=== PATIENT | female | born 1945 | race Caucasian/White ===

== ENCOUNTER 2016-07-31 05:48 | Emergency (ER) | payer MEDICARE ==
--- NOTE | 2016-07-31 06:17 | Emergency Department Record ---
History of Present Illness - General Chief complaint: ENT Stated complaint: SORE THROAT Time Seen by Provider: 07/31/16 06:11 Source: Patient Mode of Arrival: Ambulatory Limitations: No limitations - History of Present Illness Initial comments: 71 yo female presents to ED with a 3-day history of bilateral ear pain and sore throat symptoms. Patient denies fevers, chills, or recent illness, denies health problems at her baseline. MD complaint: Sore throat Onset/Timin -: Days(s) Location: R ear, L ear Severity: Severe Severity scale (1-10): 8 Consistency: Constant Improves with: Cold therapy Worsens with: Eating, Swallowing Associated Symptoms: Sore throat - Related Data Home Medications Medication Instructions Recorded Confirmed Last Taken Alprazolam [Alprazolam] 1 mg PO DAILY 03/01/14 07/31/16 07/30/16 Citalopram Hydrobromide 40 mg PO DAILY 03/01/14 07/31/16 07/30/16 [Citalopram HBr] Pravastatin Sodium [Pravachol] 80 mg PO DAILY 07/17/14 07/31/16 07/30/16 Cholecalciferol (Vitamin D3) 50,000 unit PO DAILY 04/09/15 07/31/16 07/30/16 [Vitamin D3] Meclizine HCl 25 mg PO Q8H tab.chew 03/30/16 07/31/16 07/30/16 Previous Rx's Medication Instructions Recorded Azithromycin [Zithromax] 250 mg PO DAILY #6 tab 07/31/16 Allergies Allergy/AdvReac Type Severity Reaction Status Date / Time cefuroxime axetil Allergy HIVES Unverified 04/03/16 08:47 [From Ceftin] clindamycin Allergy PT UNSURE Unverified 04/03/16 08:47 OF REACTION clindamycin HCl Allergy PT UNSURE Unverified 04/03/16 08:47 [From Cleocin] OF REACTION clindamycin palmitate HCl Allergy PT UNSURE Unverified 04/03/16 08:47 [From Cleocin] OF REACTION clindamycin phosphate Allergy PT UNSURE Unverified 04/03/16 08:47 [From Cleocin] OF REACTION ferrous sulfate Allergy HIVES Unverified 04/03/16 08:47 omeprazole [From Prilosec] Allergy HIVES Unverified 04/03/16 08:47 omeprazole magnesium Allergy HIVES Unverified 04/03/16 08:47 [From Prilosec] Penicillins Allergy HIVES Unverified 04/03/16 08:47 shellfish derived Allergy HIVES Unverified 04/03/16 08:47 Sulfa (Sulfonamide Allergy PT UNSURE Unverified 04/03/16 08:47 Antibiotics) OF REACTION acetaminophen [From [facility]] AdvReac CONSTIPATIO Unverified 04/03/16 08:47 N hydrocodone bitartrate AdvReac CONSTIPATIO Unverified 04/03/16 08:47 [From [facility]] N Travel Screening - Travel/Exposure Within Last 30 Days Have you traveled within the last 30 days?: No Review of Systems Constitutional: Denies: Chills, Fever, Malaise, Night sweats Eyes: Denies: Eye discharge, Eye pain ENT: Reports: Ear pain, Throat pain. Denies: Congestion, Epistaxis Respiratory: Denies: Cough, Dyspnea Cardiovascular: Denies: Chest pain, Dyspnea on exertion Endocrine: Denies: Fatigue, Heat or cold intolerance Gastrointestinal: Denies: Abdominal pain, Nausea, Vomiting Genitourinary: Denies: Incontinence, Retention Musculoskeletal: Denies: Arthralgia, Back pain, Gout, Joint swelling Skin: Denies: Bruising, Change in color Neurological: Denies: Abnormal gait, Confusion, Headache, Seizure Psychiatric: Denies: Anxiety Hematological/Lymphatic: Denies: Anemia, Blood Clots Past Medical History - SOCIAL HISTORY Smoking Status: Never smoker Alcohol Use: None Drug Use: None - RESPIRATORY Hx Respiratory Disorders: Yes Hx Sleep Apnea: Yes Hx of CPAP: Yes - CARDIOVASCULAR Hx Cardio Disorders: No - NEURO Hx Neuro Disorders: Yes Hx Dizziness: Yes (vertigo) - GI Hx GI Disorders: Yes Hx Reflux: Yes (relief with omeprazole) Hx Irritable Bowel: Yes (hx diverticulosis) Hx Ulcer: Yes (several times) Hx of Polyps: Yes (colon) - Hx Genitourinary Disorders: No Comment:: left kidney smaller than right kidney - ENDOCRINE Hx Endocrine Disorders: No - MUSCULOSKELETAL Hx Musculoskeletal Disorders: Yes Hx Arthritis: Yes (OSTEOARTHRITIS LEFT KNEE AND TORN MEDIAL MENISCUS) Comment:: HX ARTHROPLASTY LF THUMB DOING GOOD - PSYCH Hx Psych Problems: Yes Hx Anxiety: Yes (controlled with meds) - HEMATOLOGY/ONCOLOGY Hx Hematology/Oncology Disorders: No Family Medical History Any Significant Family History?: No Family Hx Comment (NOT TO BE USED IN PLACE OF ITEMS BELOW): Patient is adopted Physical Exam - General General Appearance: Alert, Oriented x3, Cooperative, Moderate distress Limitations: No limitations - Head Head exam: Atraumatic, Normocephalic, Normal inspection Head exam detail: negative: Abrasion, Contusion, Blandon's sign, General tenderness, Hematoma, Laceration - Eye Eye exam: Normal appearance. negative: Conjunctival injection, Periorbital swelling, Periorbital tenderness, Scleral icterus - ENT Ear exam: negative: Auricular hematoma, Auricular trauma Nasal Exam: negative: Active bleeding, Discharge, Dried blood, Foreign body Mouth exam: negative: Drooling, Laceration, Muffled voice, Tongue elevation - Neck Neck exam: Normal inspection. negative: Meningismus, Tenderness - Respiratory Respiratory exam: Normal lung sounds bilaterally. negative: Rales, Respiratory distress, Rhonchi, Stridor - Cardiovascular Cardiovascular Exam: Regular rate, Normal rhythm, Normal heart sounds - GI/Abdominal GI/Abdominal exam: Soft. negative: Rebound, Rigid, Tenderness - Rectal Rectal exam: Deferred - exam: Deferred - Extremities Extremities exam: Normal inspection. negative: Calf tenderness, Pedal edema, Tenderness - Back Back exam: Denies: CVA tenderness (R), CVA tenderness (L) - Neurological Neurological exam: Alert, Normal gait, Oriented X3 - Psychiatric Psychiatric exam: Normal affect, Normal mood - Skin Skin exam: Normal color. negative: Abrasion Type of lesion: negative: abrasion Course Vital Signs 07/31/16 06:04 Temperature 99.1 F Pulse Rate [ 103 H Pulse Ox Probe] Respiratory 18 Rate Blood Pressure 168/111 [Left Arm] Pulse Ox 98 - Reevaluation(s) Reevaluation #1: 07/31/16 06:27 Strep negative, will initiate Zithromax for the patient's URI symptoms with instructions for follow-up in 3-5 days. Patient appears stable for discharge at this time. Disposition Disposition: Discharge Clinical Impression: Pharyngitis Qualifiers: Pharyngitis/tonsillitis etiology: unspecified etiology Qualified Code(s): J02.9 - Acute pharyngitis, unspecified Disposition: Home, Self-Care Condition: (2) Stable Instructions: Pharyngitis (ED) Additional Instructions: Return to ED if your symptoms worsen or if you have any concerns. Zithromax as directed. Follow-up with your family doctor in 3-5 days as directed. Prescriptions: Azithromycin [Zithromax] 250 mg PO DAILY #6 tab Forms: Patient Portal Access Time of Disposition: 06:21
== END 2016-07-31 06:32 | disposition home or self-care (01) ==
LOC: ER 05:48
DX: J02.9 Acute pharyngitis, unspecified (principal); J06.9 Acute upper respiratory infection, unspecified; H92.03 Otalgia, bilateral
CPT/HCPCS: 87880; 99282

== ENCOUNTER 2017-05-09 07:00 | Day surgery (SDC) | payer MEDICARE ==
[2017-05-09] MEDS ORDERED: ACETAMINOPHEN 1,000 MG/100 ML BTL IV ONE (07:01)
[2017-05-09] MEDS ORDERED: PROPOFOL 10 MG/ML VIAL IV ONE (07:01)
[2017-05-09] MEDS ORDERED: ONDANSETRON HCL IV 4 MG/2 ML VIAL IVP ONE (07:01)
[2017-05-09] MEDS ORDERED: KETOROLAC 30 MG/ML VIAL IVP ONE (07:01)
[2017-05-09] MEDS ORDERED: *PACU ONLY* KETAMINE HCL 10 MG/ML (20ML) VIAL IV ONE (07:01)
--- NOTE | 2017-05-09 12:40 | Operative Note ---
DATE OF SURGERY: 05/09/2017 Surgeon: Jarad Dietz DO Referring physician: Maykel Hadley MD PREOPERATIVE DIAGNOSIS: Carpal tunnel of the left wrist. POSTOPERATIVE DIAGNOSIS: Carpal tunnel of the left wrist. OPERATION: Decompression of left median nerve of the wrist using 3.5 loupe magnification. Anesthesia: General. PROCEDURE: This 71-year-old female was taken to the operating room and placed in the supine position on the operating room table, general anesthesia was induced, and the left upper extremity was elevated. It was prepped with Hibiclens and draped in the usual sterile fashion, was exsanguinated, and the tourniquet inflated to 250 mmHg. A palmar incision was utilized following the hypothenar crease from the level of the base of the web space of the thumb to the flexor crease of the wrist. Dissection was carried down through the skin and subcutaneous tissue. The palmar fascia was identified and split in line with the skin incision to expose the flexor retinaculum, which was punctured and then split to its proximal margin, then with the contents of the carpal tunnel under direct vision, the transverse carpal ligament was transected along its ulnar border. The radial flap was raised to expose the entire median nerve under the transverse carpal ligament. The recurrent motor branch of the median nerve was identified and found to be normal. The wound was irrigated with lactated Ringer's solution and the tourniquet released. Hemostasis obtained with the electrocautery. The wound closed with interrupted 6-0 nylon suture. Sterile dressings were applied with a plaster splint immobilization, with the wrist in slight dorsiflexion. GROSS PATHOLOGY: The patient's median nerve and recurrent motor branch appeared to be grossly normal. [facility]
== END 2017-05-09 09:21 | disposition home or self-care (01) ==
LOC: SUR 07:00
PROVIDERS: ATTEND Orthopaedic Surgery
DX: G56.02 Carpal tunnel syndrome, left upper limb (principal); E78.00 Pure hypercholesterolemia, unspecified
CPT/HCPCS: 64721; 01810; J1885; J2405

== ENCOUNTER 2017-11-10 00:16 | Emergency (ER) | payer MEDICARE ==
[2017-11-10] MEDS ORDERED: ASPIRIN 81 MG CHEWABLE TABLET PO ONE (00:22)
[2017-11-10] MEDS ORDERED: LORAZEPAM 2 MG/ML VIAL IV ONE (00:29)
--- NOTE | 2017-11-10 00:33 | Emergency Department Record ---
History of Present Illness - General Chief Complaint: Chest Pain Stated Complaint: CHEST TIGHTNESS Time Seen by Provider: 11/10/17 00:22 Source: Patient Mode of Arrival: Ambulatory Limitations: No limitations - History of Present Illness Initial Comments: 72 yo female presents to ED for evaluation of chest discomfort radiating through to her chest that began approximately 90 minutes ago. Patient reports that she has been under a lot of stress with the near of her son-in-law, reports a history of panic attacks previously but has not experienced one in some tome. Patient reports recent diagnosis of HTN, denies previous heart problems, DM, or smoking history. MD Complaint: Chest pain Onset/Timin -: Minutes(s) Onset: During rest Pain Location: Substernal Pain Radiation: Back, Other Severity: Mild Severity scale (1-10): 3 Quality: Aching Consistency: Constant Improves With: Nothing Worsens With: Nothing Context: New medications Anginal Symptoms: Other Other Symptoms: Other Treatments Prior to Arrival: None - Related Data Allergies Allergy/AdvReac Type Severity Reaction Status Date / Time cefuroxime axetil Allergy HIVES Unverified 11/07/17 16:44 [From Ceftin] clindamycin Allergy PT UNSURE Unverified 11/07/17 16:44 OF REACTION clindamycin HCl Allergy PT UNSURE Unverified 11/07/17 16:44 [From Cleocin] OF REACTION clindamycin palmitate HCl Allergy PT UNSURE Unverified 11/07/17 16:44 [From Cleocin] OF REACTION clindamycin phosphate Allergy PT UNSURE Unverified 11/07/17 16:44 [From Cleocin] OF REACTION ferrous sulfate Allergy HIVES Unverified 11/07/17 16:44 omeprazole [From Prilosec] Allergy HIVES Unverified 11/07/17 16:44 omeprazole magnesium Allergy HIVES Unverified 11/07/17 16:44 [From Prilosec] Penicillins Allergy HIVES Unverified 11/07/17 16:44 shellfish derived Allergy HIVES Unverified 11/07/17 16:44 Sulfa (Sulfonamide Allergy PT UNSURE Unverified 11/07/17 16:44 Antibiotics) OF REACTION acetaminophen [From [place]] AdvReac CONSTIPATIO Unverified 11/07/17 16:44 N hydrocodone bitartrate AdvReac CONSTIPATIO Unverified 11/07/17 16:44 [From [place]] N paper tape Allergy Mild Uncoded 06/04/17 14:03 Travel Screening - Travel/Exposure Within Last 30 Days Have you traveled within the last 30 days?: No - Travel Symptoms Symptom Screening: Headache Review of Systems Constitutional: Denies: Chills, Fever, Malaise, Night sweats Eyes: Denies: Eye discharge, Eye pain ENT: Denies: Congestion, Ear pain, Epistaxis Respiratory: Denies: Cough, Dyspnea Cardiovascular: Reports: Chest pain. Denies: Dyspnea on exertion, Edema Endocrine: Denies: Fatigue, Heat or cold intolerance Gastrointestinal: Denies: Abdominal pain, Nausea, Vomiting Genitourinary: Denies: Incontinence, Retention Musculoskeletal: Denies: Arthralgia, Back pain Skin: Denies: Bruising, Change in color Neurological: Denies: Abnormal gait, Confusion, Headache, Seizure Psychiatric: Reports: Anxiety Hematological/Lymphatic: Denies: Anemia, Blood Clots Past Medical History - SOCIAL HISTORY Smoking Status: Never smoker Alcohol Use: None Drug Use: None - RESPIRATORY Hx Respiratory Disorders: Yes Hx Sleep Apnea: Yes Hx of CPAP: Yes (doesnt use every night) - CARDIOVASCULAR Hx Cardio Disorders: No - NEURO Hx Neuro Disorders: Yes Hx Dizziness: Yes (vertigo controlled with meds) - GI Hx GI Disorders: Yes Hx Reflux: Yes (relief with omeprazole) Hx Irritable Bowel: Yes (hx diverticulosis) Hx Ulcer: Yes (several times) Hx of Polyps: Yes (colon) - Hx Genitourinary Disorders: No Comment:: left kidney smaller than right kidney according to MRI - ENDOCRINE Hx Endocrine Disorders: No - MUSCULOSKELETAL Hx Musculoskeletal Disorders: Yes Hx Arthritis: Yes (generalized) Comment:: HX ARTHROPLASTY LF THUMB DOING GOOD - PSYCH Hx Psych Problems: Yes Hx Anxiety: Yes (controlled with meds) Hx Depression: Yes - HEMATOLOGY/ONCOLOGY Hx Hematology/Oncology Disorders: No Family Medical History Any Significant Family History?: No Family Hx Comment (NOT TO BE USED IN PLACE OF ITEMS BELOW): Patient is adopted Physical Exam - General General Appearance: Alert, Oriented x3, Cooperative, Anxious Limitations: No limitations - Head Head exam: Atraumatic, Normocephalic, Normal inspection Head exam detail: negative: Abrasion, Contusion, Blandon's sign, General tenderness, Hematoma, Laceration - Eye Eye exam: Normal appearance. negative: Conjunctival injection, Periorbital swelling, Periorbital tenderness, Scleral icterus - ENT Ear exam: negative: Auricular hematoma, Auricular trauma Nasal Exam: negative: Active bleeding, Discharge, Dried blood, Foreign body Mouth exam: negative: Drooling, Laceration, Muffled voice, Tongue elevation - Neck Neck exam: Normal inspection. negative: Meningismus, Tenderness - Respiratory Respiratory exam: Normal lung sounds bilaterally. negative: Rales, Respiratory distress, Rhonchi, Stridor - Cardiovascular Cardiovascular Exam: Regular rate, Normal rhythm, Normal heart sounds - GI/Abdominal GI/Abdominal exam: Soft. negative: Rebound, Rigid, Tenderness - Rectal Rectal exam: Deferred - exam: Deferred - Extremities Extremities exam: Normal inspection. negative: Calf tenderness, Pedal edema, Tenderness - Back Back exam: Denies: CVA tenderness (R), CVA tenderness (L) - Neurological Neurological exam: Alert, Normal gait, Oriented X3 - Psychiatric Psychiatric exam: Anxious - Skin Skin exam: Normal color. negative: Abrasion Type of lesion: negative: abrasion Course Vital Signs 11/10/17 00:19 Temperature 98.2 F Pulse Rate 107 H Respiratory 22 Rate Blood Pressure 192/88 Pulse Ox 98 - Reevaluation(s) Reevaluation #1: 11/10/17 00:32 EKG: SInus tachycardia 106 Normal axis, normal intervals Q waves III, No acute ST-T wave changes are present. Reevaluation #2: 11/10/17 01:03 Labs reviewed and grossly unremarkable for an acute process. HEART Protocol applied, rates 3. Will discuss transfer for further cardiac evaluation vs. repeat Troponin. Reevaluation #3: 11/10/17 01:24 All results were discussed with the patient, reports that she is feeling better at this time. Discussed transfer for cardiology evaluation and stress testing, patient declined stating that her symptoms are related to stress and anxiety. Patient is willing to stay for 2nd Troponin at 3-hours, will arrange for outpatient stress testing in 2-3 days as well in the [facility] specialty clinic. Reevaluation #4: 11/10/17 04:18 Repeat Troponin appears negative for myocardial injury. Patient and her SO were updated on all results, appears stable for discharge at this time. Medical Decision Making - Lab Data Result diagrams: 11/10/17 00:35 09/23/18 00:35 Disposition Disposition: Discharge Clinical Impression: Chest pain, atypical Disposition: Home, Self-Care Condition: (2) Stable Instructions: Chest Pain (ED) Additional Instructions: Return to ED if your symptoms worsen or if you have any concerns. Follow-up with the [facility] for outpatient cardiac stress testing in 1-3 days as directed. Referrals: RAMONA HUFF M.D. [MEDICAL DOCTOR] - [facility] [Provider Group] Forms: Patient Portal Access Time of Disposition: 04:19 Quality - Quality Measures Quality Measures: N/A - Blood Pressure Screening Does Patient Have Any of the Following: No Blood Pressure Classification: Pre-Hypertensive BP Reading Systolic Measurement: 192 Diastolic Measurement: 88 Screening for High Blood Pressure: < Pre-Hypertensive BP, F/U Documented > [ [id number]] Pre-Hypertensive Follow-up Interventions: Referral to alternative/primary care provider.
[2017-11-10 00:43] LABS: BASO % 0.6 % (0-6); EOS % 1.7 % (0-6); GRAN % 60.5 % (47-80); HEMATOCRIT 39.7 % (35.0-47.0); LYMPH % 25.1 % (16-45); MEAN CELL VOLUME 96.1 fl (81-97); MEAN CORPUSCULAR HEMOGLOBIN 31.5 pg (27-33); MEAN CORPUSCULAR HGB CONC 32.7 g/dl (32-36); MEAN PLATELET VOLUME 9.7 fl (7.4-10.4); MONO % 12.1 % (0-9); PLATELET COUNT 284 K/uL (130-400); RED BLOOD COUNT 4.13 M/uL (3.80-5.40); RED CELL DISTRIBUTION WIDTH 12.1 % (11.5-14.5); WHITE BLOOD COUNT W/O DIFF 5.2 K/uL (4.2-12.2)
[2017-11-10 00:53] LABS: BLOOD UREA NITROGEN 25 mg/dL (8-23); CREATININE 0.6 mg/dL (0.5-0.9); EST GLOMERULAR FILTRATION RATE > 60 mL/min
[2017-11-10 00:54] LABS: TOTAL PROTEIN 6.8 g/dL (6.6-8.7)
[2017-11-10 00:56] LABS: GLUCOSE,RANDOM 138 mg/dL (74-109)
[2017-11-10 00:58] LABS: ALT/SGPT 25 U/L (<33); AST/SGOT 32 U/L (10.0-35.0)
[2017-11-10 00:59] LABS: ALB/GLOB RATIO 1.8 (1.1-1.8); ALBUMIN 4.4 g/dL (4.0-5.0); ALKALINE PHOSPHATASE 80 U/L (35-104)
== END 2017-11-10 04:51 | disposition home or self-care (01) ==
LOC: ER 00:16
DX: R07.89 Other chest pain (principal); I10 Essential (primary) hypertension
CPT/HCPCS: 80053; 84484; 85025; 93005; 93010; 96374; 99284

== ENCOUNTER 2018-06-25 19:59 | Observation (INO) | payer MEDICARE ==
--- NOTE | 2018-06-25 20:31 | Emergency Department Record ---
History of Present Illness - General Chief Complaint: Abdominal Pain Stated Complaint: ABDOMINAL PAIN Time Seen by Provider: 06/25/18 20:18 Source: Patient Mode of Arrival: Ambulatory - History of Present Illness Initial Comments: The patient states that she has a 4/10 bilateral lower abdominal pain associated with nausea. About 2 hours earlier she had some severe pain 10/10 which made her scream while trying to have a BM. She has chronic constipation, sometimes not having a BM for 2 weeks. She states her GI doc says she has diverticulosis. She also has a history of adhesions due to multiple surgeries including 2 C sections, hysterectomy. She has had several spells of this incresed severe pain since arriving. She received a cardiac stent in January and is on plavix which is causing her bruising. 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 Tonight she noted a streak of blood while attempting her BM. She also did have a large BM yesterday. MD Complaint: Abdominal pain Onset/Timin -: Days(s) Location: LLQ, RLQ Radiation: Other Migration to: Other Severity: Moderate Severity scale (1-10): 4 Quality: Sharp, Stabbing Improves With: Nothing Worsens With: Bowel movement Associated Symptoms: Denies other symptoms - Related Data Home Medications Medication Instructions Recorded Confirmed Last Taken Cholecalciferol (Vitamin D3) 2,000 unit PO DAILY 06/25/18 06/25/18 06/25/18 [Vitamin D3] Cyclobenzaprine HCl 7.5 mg PO ASDIR PRN 06/25/18 06/25/18 Unknown Allergies Allergy/AdvReac Type Severity Reaction Status Date / Time ticagrelor [From Brilinta] Allergy Mild itching Verified 06/25/18 20:40 cefuroxime axetil Allergy HIVES Verified 06/25/18 20:40 [From Ceftin] clindamycin Allergy PT UNSURE Verified 06/25/18 20:40 OF REACTION clindamycin HCl Allergy PT UNSURE Verified 06/25/18 20:40 [From Cleocin] OF REACTION clindamycin palmitate HCl Allergy PT UNSURE Verified 06/25/18 20:38 [From Cleocin] OF REACTION clindamycin phosphate Allergy PT UNSURE Verified 06/25/18 20:16 [From Cleocin] OF REACTION ferrous sulfate Allergy HIVES Verified 06/25/18 20:16 omeprazole [From Prilosec] Allergy HIVES Verified 06/25/18 20:16 omeprazole magnesium Allergy HIVES Verified 06/25/18 20:16 [From Prilosec] Penicillins Allergy HIVES Verified 06/25/18 20:16 shellfish derived Allergy HIVES Verified 06/25/18 20:16 Sulfa (Sulfonamide Allergy PT UNSURE Verified 06/25/18 20:16 Antibiotics) OF REACTION acetaminophen [From [place]] AdvReac CONSTIPATIO Verified 06/25/18 20:16 N hydrocodone bitartrate AdvReac CONSTIPATIO Verified 06/25/18 20:16 [From [place]] N paper tape Allergy Mild RASH Uncoded 06/25/18 20:16 Travel Screening - Travel/Exposure Within Last 30 Days Have you traveled within the last 30 days?: No - Travel/Exposure Within Last Year Have you traveled outside the [place] in the last year?: No - Additonal Travel Details Have you been exposed to anyone with a communicable illness?: No - Travel Symptoms Symptom Screening: None Review of Systems Reviewed: No additional complaints except as noted below Constitutional: Reports: As per HPI. Denies: Chills, Fever, Malaise, Night sweats, Weakness, Weight change Eyes: Reports: As per HPI. Denies: Eye discharge, Eye pain, Photophobia, Vision change ENT: Reports: As per HPI. Denies: Congestion, Dental pain, Ear pain, Epistaxis, Hearing loss, Throat pain Respiratory: Reports: As per HPI. Denies: Cough, Dyspnea, Hemoptysis, Stridor, Wheezes Cardiovascular: Reports: As per HPI. Denies: Arrhythmia, Chest pain, Dyspnea on exertion, Edema, Murmurs, Orthopnea, Palpitations, Paroxysmal nocturnal dyspnea, Rheumatic Fever, Syncope Endocrine: Reports: As per HPI. Denies: Fatigue, Heat or cold intolerance, Polydipsia, Polyuria Gastrointestinal: Reports: As per HPI. Denies: Abdominal pain, Constipation, Diarrhea, Hematemesis, Hematochezia, Melena, Nausea, Vomiting Genitourinary: Reports: As per HPI. Denies: Abnormal menses, Discharge, Dyspareunia, Dysuria, Frequency, Hematuria, Incontinence, Retention, Urgency Musculoskeletal: Reports: As per HPI. Denies: Arthralgia, Back pain, Gout, Joint swelling, Myalgia, Neck pain Skin: Reports: As per HPI. Denies: Bruising, Change in color, Change in hair/nails, Lesions, Pruritus, Rash Neurological: Reports: As per HPI. Denies: Abnormal gait, Confusion, Headache, Numbness, Paresthesias, Seizure, Tingling, Tremors, Vertigo, Weakness Psychiatric: Reports: As per HPI. Denies: Anxiety, Auditory hallucinations, De pression, Homicidal thoughts, Suicidal thoughts, Visual hallucinations Hematological/Lymphatic: Reports: As per HPI. Denies: Anemia, Blood Clots, Easy bleeding, Easy bruising, Swollen glands Past Medical History - SOCIAL HISTORY Smoking Status: Never smoker Alcohol Use: None Drug Use: None - RESPIRATORY Hx Respiratory Disorders: No Hx Sleep Apnea: No Hx of CPAP: No - CARDIOVASCULAR Hx Cardio Disorders: No Hx Cardiac Cath: Yes (stent [id number]) - NEURO Hx Neuro Disorders: Yes Hx Dizziness: Yes (vertigo controlled with meds) - GI Hx GI Disorders: Yes Hx Reflux: Yes (relief with omeprazole) Hx Irritable Bowel: Yes (hx diverticulosis) Hx Ulcer: Yes (several times) Hx of Polyps: Yes (colon) - Hx Genitourinary Disorders: No Comment:: left kidney smaller than right kidney according to MRI - ENDOCRINE Hx Endocrine Disorders: No - MUSCULOSKELETAL Hx Musculoskeletal Disorders: Yes Hx Arthritis: Yes (generalized) Comment:: HX ARTHROPLASTY LF THUMB DOING GOOD - PSYCH Hx Psych Problems: Yes Hx Anxiety: Yes (controlled with meds) Hx Depression: Yes - HEMATOLOGY/ONCOLOGY Hx Hematology/Oncology Disorders: No Family Medical History Any Significant Family History?: No Family Hx Comment (NOT TO BE USED IN PLACE OF ITEMS BELOW): Patient is adopted Physical Exam - General General Appearance: Alert, Oriented x3, Cooperative, Mild distress (with interm ittent episodes of severe distress), Anxious - Head Head exam: Normal inspection - Eye Eye exam: Normal appearance, PERRL, EOMI. negative: Conjunctival injection, Nystagmus Pupils: Normal accommodation - ENT ENT exam: Normal exam, Mucous membranes moist, Normal external ear exam, Normal orophraynx, TM's normal bilaterally Ear exam: Normal external inspection. negative: External canal tenderness Nasal Exam: Normal inspection. negative: Discharge, Sinus tenderness Mouth exam: Normal external inspection, Tongue normal Teeth exam: Normal inspection. negative: Dental caries Throat exam: Normal inspection. negative: Tonsillar erythema, Tonsillar exudate - Neck Neck exam: Normal inspection, Full ROM. negative: Lymphadenopathy, Meningismus, Tenderness - Respiratory Respiratory exam: Normal lung sounds bilaterally. negative: Accessory muscle use, Chest wall tenderness, Decreased breath sounds, Prolonged expiratory, Respiratory distress - Cardiovascular Cardiovascular Exam: Normal rhythm, Normal heart sounds, Tachycardia - GI/Abdominal GI/Abdominal exam: Soft, Normal bowel sounds, Tenderness (bilateral lower abdominal tenderness on palpation). negative: Distended, Guarding, Hernia, Rebound, Rigid - Rectal Rectal exam: Other (tiny rectal tear posteriorly, no active bleeding; no stool on glove). negative: Decreased rectal tone, Fecal impaction, Hemorrhoids, Mass - exam: Deferred - Extremities Extremities exam: Normal inspection, Full ROM, Normal capillary refill. negative: Tenderness - Back Back exam: Reports: Normal inspection, Full ROM. Denies: Muscle spasm, Rash noted, Tenderness - Neurological Neurological exam: Alert, Normal gait, Oriented X3, Reflexes normal - Psychiatric Psychiatric exam: Normal affect, Normal mood - Skin Skin exam: Dry, Intact, Normal color, Warm Course Vital Signs 06/25/18 20:06 Temperature 99.7 F H Pulse Rate [ 103 H Left] Respiratory 16 Rate Blood Pressure 142/82 [Left Arm] Pulse Ox 97 - Reevaluation(s) Reevaluation #1: 06/25/18 21:10 Her nauisea has improved after zofran ODT. 06/25/18 23:50 Reevaluation #2: CT scan results reviewed with patient. She prefers admission overnight due to her episodes of severe pain on and off. 06/25/18 23:50 Medical Decision Making - Management Options MDM Management: Additional Work-up Planned (e.g. ADM/Transfer/OP Study) - Data Complexity MDM Data: Labs Ordered and/or Reviewed, X-Ray Ordered and/or Reviewed (Abd/Pelvis CT: sigmoid diverticulitis per radiologist.) - Lab Data Result diagrams: 06/25/18 20:56 06/25/18 20:56 Disposition Disposition: Admit Clinical Impression: Diverticulitis of sigmoid colon Disposition: Still a Patient at [facility] Decision to Admit: Admit from ER Decision to Admit Date: 06/25/18 Decision to Admit Time: 23:52 Accepting Physician: Dr. Fernander Time Discussed w/Accepting Physician: 06:45 (0645 the next morning) Condition: (2) Stable Quality - Quality Measures Quality Measures: N/A - Blood Pressure Screening Does Patient Have Any of the Following: Active Dx of HTN Blood Pressure Classification: Pre-Hypertensive BP Reading Systolic Measurement: 123 Diastolic Measurement: 69 Screening for High Blood Pressure: Patient Exclusion, Hx of HTN [[id number]]
[2018-06-25] MEDS ORDERED: ONDANSETRON HCL IV 4 MG/2 ML VIAL IVP ONE (20:32)
[2018-06-25] MEDS ORDERED: 0.9 % SODIUM CHLORIDE 1,000 ML BAG IV ONE (20:32)
[2018-06-25] MEDS ORDERED: ONDANSETRON 4 MG ODT TABLET SL ONE (20:37)
[2018-06-25 20:59] LABS: ABSOLUTE NEUTROPHIL COUNT 6.07; BASO % 0.2 % (0-6); EOS % 2.5 % (0-6); GRAN % 70.3 % (47-80); HEMOGLOBIN 12.6 gm/dl (11.6-16.0); LYMPH % 16.2 % (16-45); MEAN CELL VOLUME 98.5 fl (81-97); MEAN CORPUSCULAR HEMOGLOBIN 31.8 pg (27-33); MEAN CORPUSCULAR HGB CONC 32.3 g/dl (32-36); MEAN PLATELET VOLUME 9.3 fl (7.4-10.4); MONO % 10.8 % (0-9); PLATELET COUNT 325 K/uL (130-400); RED BLOOD COUNT 3.96 M/uL (3.80-5.40); RED CELL DISTRIBUTION WIDTH 12.1 % (11.5-14.5); WHITE BLOOD COUNT W/O DIFF 8.6 K/uL (4.2-12.2)
[2018-06-25 21:01] LABS: URINE APPEARANCE CLEAR; URINE BILIRUBIN NEGATIVE (NEGATIVE); URINE BLOOD NEGATIVE (NEGATIVE); URINE COLOR YELLOW; URINE GLUCOSE (UA) NEGATIVE (NEGATIVE); URINE KETONE NEGATIVE (NEGATIVE); URINE LEUKOCYTE ESTERASE NEGATIVE (NEGATIVE); URINE NITRITE NEGATIVE (NEGATIVE); URINE PROTEIN NEGATIVE (NEGATIVE); URINE UROBILINOGEN 0.2 E.U./dL (0.20 - 1.00)
[2018-06-25 21:12] LABS: BLOOD UREA NITROGEN 12 mg/dL (8-23); CREATININE 0.6 mg/dL (0.5-0.9); EST GLOMERULAR FILTRATION RATE > 60 mL/min
[2018-06-25 21:13] LABS: LIPASE 31 U/L (13-60); TOTAL PROTEIN 7.2 g/dL (6.6-8.7)
[2018-06-25 21:14] LABS: GLUCOSE,RANDOM 92 mg/dL (74-109)
[2018-06-25 21:17] LABS: ALB/GLOB RATIO 1.8 (1.1-1.8); ALBUMIN 4.6 g/dL (4.0-5.0); ALKALINE PHOSPHATASE 86 U/L (35-104); ALT/SGPT 18 U/L (<33); AST/SGOT 22 U/L (10.0-35.0)
[2018-06-25] MEDS ORDERED: PIPERACILLIN SODIUM/TAZOBACTAM 4.5 GM in 0.9 % SODIUM CHLORIDE 100ML 100 ML IVPB ONE (22:41)
[2018-06-25] MEDS ORDERED: HYDROMORPHONE HCL 2 MG/ML VIAL IVP ONE (22:41)
[2018-06-25] MEDS ORDERED: VANCOMYCIN HCL 1,000 MG in 0.9 % SODIUM CHLORIDE 250ML 250 ML IVPB ONE (22:44)
[2018-06-26] MEDS ORDERED: 0.9 % SODIUM CHLORIDE 1000ML 1,000 ML IV PRN (00:14)
[2018-06-26] MEDS ORDERED: HYDROMORPHONE HCL 2 MG/ML VIAL IV PRN (00:14)
[2018-06-26] MEDS ORDERED: ONDANSETRON HCL IV 4 MG/2 ML VIAL IVP PRN (00:14)
[2018-06-26] MEDS ORDERED: PIPERACILLIN SODIUM/TAZOBACTAM 4.5 GM in 0.9 % SODIUM CHLORIDE 100ML 100 ML IVPB SCH ×2 (00:15→06:30)
[2018-06-26] MEDS ORDERED: MECLIZINE HCL 25 MG PO SCH (00:15)
[2018-06-26] MEDS ORDERED: VANCOMYCIN HCL 1,000 MG in 0.9 % SODIUM CHLORIDE 250ML 250 ML IVPB SCH ×2 (00:15→05:00)
[2018-06-26] MEDS ORDERED: VENLAFAXINE HCL 150 MG PO SCH (00:15)
[2018-06-26] MEDS ORDERED: CLOPIDOGREL 75MG TABLET PO SCH (00:15)
[2018-06-26] MEDS ORDERED: ASPIRIN 81 MG TABEC PO SCH (00:15)
[2018-06-26] MEDS: ACETAMINOPHEN 500 MG TABLET PO PRN (04:03)
[2018-06-26] MEDS ORDERED: VANCOMYCIN HCL 1,000 MG in 0.9 % SODIUM CHLORIDE 250ML 250 ML IVPB ONE (05:00)
[2018-06-26 07:00] LABS: ABSOLUTE NEUTROPHIL COUNT 3.56; BASO % 0.4 % (0-6); EOS % 4.4 % (0-6); GRAN % 62.5 % (47-80); HEMATOCRIT 33.7 % (35.0-47.0); HEMOGLOBIN 10.7 gm/dl (11.6-16.0); LYMPH % 20.9 % (16-45); MEAN CELL VOLUME 99.4 fl (81-97); MEAN CORPUSCULAR HGB CONC 31.8 g/dl (32-36); MEAN PLATELET VOLUME 9.6 fl (7.4-10.4); MONO % 11.8 % (0-9); PLATELET COUNT 286 K/uL (130-400); RED BLOOD COUNT 3.39 M/uL (3.80-5.40); RED CELL DISTRIBUTION WIDTH 12.2 % (11.5-14.5); WHITE BLOOD COUNT W/O DIFF 5.7 K/uL (4.2-12.2)
[2018-06-26 07:07] LABS: MEAN CORPUSCULAR HEMOGLOBIN 31.5 pg (27-33)
[2018-06-26 07:11] LABS: BLOOD UREA NITROGEN 12 mg/dL (8-23); CREATININE 0.6 mg/dL (0.5-0.9); EST GLOMERULAR FILTRATION RATE > 60 mL/min; GLUCOSE,RANDOM 114 mg/dL (74-109)
--- NOTE | 2018-06-26 07:30 | CT SCAN REPORT ---
EXAM: CT OF THE ABDOMEN AND PELVIS WITHOUT IV CONTRAST HISTORY: LOWER ABDOMINAL PAIN. TECHNIQUE: Helical CT scan of the abdomen and pelvis was obtained without intravenous contrast. No oral contrast was administered. Comparison: CT of the abdomen and pelvis without contrast 07/17/14. FINDINGS: The lung bases are clear. Moderate aortic valvular calcification. No pericardial effusion. The liver again has geographic low density, consistent with fatty change. Normal size. Cholecystectomy clips are present. The spleen has normal size. No inflammatory change of the pancreas. No renal calculi or hydronephrosis. The bowel has normal caliber. Interval development of thickening and inflammatory change of the mid sigmoid colon for approximately a 7 cm segment. Several diverticula are present in this region and there is surrounding pericolonic fat stranding. Tiny amount of peritoneal fluid, no fluid collections. No extraluminal gas. The umbilical hernia again contains unobstructed transverse colon. The urinary bladder is unremarkable. The bony structures show moderate degenerative change at L4-L5. Suboptimal evaluation of the solid organs without intravenous contrast. IMPRESSION: 1. ACUTE MID SIGMOID DIVERTICULITIS. NO EVIDENCE OF PERFORATION OR ABSCESS. RECOMMEND FOLLOW-UP WITH COLONOSCOPY AT A LATER TIME TO BE SURE THERE IS NO UNDERLYING MASS IN THIS THICKENED SEGMENT OF COLON. 2. UMBILICAL HERNIA CONTAINING UNOBSTRUCTED COLON, SIMILAR TO PREVIOUS EXAM. JOB NUMBER: [id number] [facility]
[2018-06-26] MEDS ORDERED: CYCLOBENZAPRINE 7.5 MG PO PRN (09:00)
[2018-06-26] MEDS ORDERED: CORICIDIN HBP PO PRN (09:00)
[2018-06-26] MEDS: CLOPIDOGREL 75MG TABLET PO SCH (10:02)
[2018-06-26] MEDS: METOPROLOL TART 25 MG TABLET PO SCH ×2 (10:02→21:29)
[2018-06-26] MEDS: MECLIZINE 25 MG TABLET PO SCH ×2 (10:03→12:15)
[2018-06-26] MEDS: VENLAFAXINE ER 75 MG CAPSULE PO SCH (10:03)
[2018-06-26] MEDS: ASPIRIN 81 MG TABEC PO SCH (10:03)
[2018-06-26] MEDS: CHOLECALCIFEROL 1,000 UNIT TABLET PO SCH (10:04)
[2018-06-26] MEDS ORDERED: CIPROFLOXACIN LACTATE/D5W 400 MG/200 ML BAG IVPB SCH (10:15)
--- NOTE | 2018-06-26 11:25 | History & Physical ---
History of Present Illness - Date of Service Date of Service for History & Physical: 06/26/18 - History of Present Illness Admitting Diagnosis: Acute sigmoid diverticulitis; abdominal pain History of Present Illness: 73 year old female patient presented to ED for evaluation of abdominal pain. Patient reported generalized lower abdominal pain with intermittent nausea. States she has noted some intermittent pain for the past 2 weeks. Reports no diarrhea, but chronic constipation. States her last BM was 06/25/18. Patient reports a history of diverticulosis and abdominal adhesions due to multiple c- sections and a hysterectomy. Patient also reports a history of cardiac stenting last January, and was started on Plavix at that time. Reports additional history of HTN, anxiety, and depression. PCP: Magy Li NP ED Course: Temp 99.7F, HR 103, RR 16, BP 142/82, Pulse Ox 97% ABD/Pelvic CT: acute mid-sigmoid diverticulitis with no perforation or abscess, umbilical hernia containing unobstructed colon, similar to previous studies UA negative WBC 8.6 Started Zosyn and Vanco 06/26/18: Patient A&O x 4, resting comfortably in bed. Patient reports lower abdominal pain 2/10, improved from last night, with 1 dose of Dilaudid in ED. Has been tolerating PO fluids with no nausea or vomiting. Travel Screening - Travel/Exposure Within Last 30 Days Have you traveled within the last 30 days?: No - Travel/Exposure Within Last Year Have you traveled outside the [place] in the last year?: No - Additonal Travel Details Have you been exposed to anyone with a communicable illness?: No - Travel Symptoms Symptom Screening: None Review of Systems Reviewed: No additional complaints except as noted below Constitutional: Reports: As per HPI. Denies: Chills, Fever, Malaise, Night sweats, Weakness, Weight change Eyes: Reports: As per HPI. Denies: Eye discharge, Eye pain, Photophobia, Vision change ENT: Reports: As per HPI. Denies: Congestion, Dental pain, Ear pain, Epistaxis, Hearing loss, Throat pain Respiratory: Reports: As per HPI. Denies: Cough, Dyspnea, Hemoptysis, Stridor, Wheezes Cardiovascular: Reports: As per HPI. Denies: Arrhythmia, Chest pain, Dyspnea on exertion, Edema, Murmurs, Orthopnea, Palpitations, Paroxysmal nocturnal dyspnea, Rheumatic Fever, Syncope Endocrine: Reports: As per HPI. Denies: Fatigue, Heat or cold intolerance, Polydipsia, Polyuria Gastrointestinal: Reports: As per HPI, Abdominal pain, Nausea. Denies: Constipation, Diarrhea, Hematemesis, Hematochezia, Melena, Vomiting Genitourinary: Reports: As per HPI. Denies: Abnormal menses, Discharge, Dysp areunia, Dysuria, Frequency, Hematuria, Incontinence, Retention, Urgency Musculoskeletal: Reports: As per HPI. Denies: Arthralgia, Back pain, Gout, Joint swelling, Myalgia, Neck pain Skin: Reports: As per HPI. Denies: Bruising, Change in color, Change in hair/nails, Lesions, Pruritus, Rash Neurological: Reports: As per HPI. Denies: Abnormal gait, Confusion, Headache, Numbness, Paresthesias, Seizure, Tingling, Tremors, Vertigo, Weakness Psychiatric: Reports: As per HPI. Denies: Anxiety, Auditory hallucinations, Depression, Homicidal thoughts, Suicidal thoughts, Visual hallucinations Hematological/Lymphatic: Reports: As per HPI. Denies: Anemia, Blood Clots, Easy bleeding, Easy bruising, Swollen glands Past Medical History - SOCIAL HISTORY Smoking Status: Never smoker Alcohol Use: None Drug Use: None - RESPIRATORY Hx Respiratory Disorders: No Hx Sleep Apnea: No Hx of CPAP: No - CARDIOVASCULAR Hx Cardio Disorders: No Hx Cardiac Cath: Yes (stent [id number]) - NEURO Hx Neuro Disorders: Yes Hx Dizziness: Yes (vertigo controlled with meds) - GI Hx GI Disorders: Yes Hx Reflux: Yes (relief with omeprazole) Hx Irritable Bowel: Yes (hx diverticulosis) Hx Ulcer: Yes (several times) Hx of Polyps: Yes (colon) - Hx Genitourinary Disorders: No Comment:: left kidney smaller than right kidney according to MRI - ENDOCRINE Hx Endocrine Disorders: No - MUSCULOSKELETAL Hx Musculoskeletal Disorders: Yes Hx Arthritis: Yes (generalized) Comment:: HX ARTHROPLASTY LF THUMB DOING GOOD - PSYCH Hx Psych Problems: Yes Hx Anxiety: Yes (controlled with meds) Hx Depression: Yes - HEMATOLOGY/ONCOLOGY Hx Hematology/Oncology Disorders: No Family Medical History Any Significant Family History?: No Family Hx Comment (NOT TO BE USED IN PLACE OF ITEMS BELOW): Patient is adopted H&P Meds/Allergies - Allergies Allergies: Allergies Allergy/AdvReac Type Severity Reaction Status Date / Time ticagrelor [From Brilinta] Allergy Mild itching Verified 06/25/18 20:40 cefuroxime axetil Allergy HIVES Verified 06/25/18 20:40 [From Ceftin] clindamycin Allergy PT UNSURE Verified 06/25/18 20:40 OF REACTION clindamycin HCl Allergy PT UNSURE Verified 06/25/18 20:40 [From Cleocin] OF REACTION clindamycin palmitate HCl Allergy PT UNSURE Verified 06/25/18 20:38 [From [place]] OF REACTION clindamycin phosphate Allergy PT UNSURE Verified 06/25/18 20:16 [From [place]] OF REACTION ferrous sulfate Allergy HIVES Verified 06/25/18 20:16 omeprazole [From Prilosec] Allergy HIVES Verified 06/25/18 20:16 omeprazole magnesium Allergy HIVES Verified 06/25/18 20:16 [From Prilosec] Penicillins Allergy HIVES Verified 06/25/18 20:16 shellfish derived Allergy HIVES Verified 06/25/18 20:16 Sulfa (Sulfonamide Allergy PT UNSURE Verified 06/25/18 20:16 Antibiotics) OF REACTION acetaminophen [From [place]] AdvReac CONSTIPATIO Verified 06/25/18 20:16 N hydrocodone bitartrate AdvReac CONSTIPATIO Verified 06/25/18 20:16 [From [place]] N paper tape Allergy Mild RASH Uncoded 06/25/18 20:16 - Home Medications Home Medications Medication Instructions Recorded Confirmed Last Taken Cholecalciferol (Vitamin D3) 2,000 unit PO DAILY 06/25/18 06/25/18 06/25/18 [Vitamin D3] Cyclobenzaprine HCl 7.5 mg PO ASDIR PRN 06/25/18 06/25/18 Unknown - Active Medications Active Medications: Current Medications Acetaminophen (Tylenol 500mg Tab) 1,000 mg PO Q6H PRN PRN Reason: PAIN - MILD(1-4)/FEVER Last Admin: 06/26/18 04:03 Dose: 1,000 mg Documented by: Aspirin (Ecotrin (Ec)) 81 mg PO DAILY [facility] Last Admin: 06/26/18 10:03 Dose: 81 mg Documented by: Clopidogrel Bisulfate (Plavix) 75 mg PO DAILY [facility] Last Admin: 06/26/18 10:02 Dose: 75 mg Documented by: Hydromorphone HCl (Dilaudid) 1 mg IV Q4H PRN PRN Reason: ABDOMINAL PAIN Sodium Chloride () 1,000 mls @ 125 mls/hr IV .Q8H PRN PRN Reason: LARGE VOLUME IV Ciprofloxacin Lactate (Cipro) 400 mg in 200 mls @ 200 mls/hr IVPB Q12H [facility] Stop: 07/01/18 10:16 Metronidazole/Sodium Chloride (Flagyl) 500 mg in 100 mls @ 100 mls/hr IVPB Q8H [facility] Stop: 07/01/18 11:31 Magnesium Oxide (Mag Ox) 400 mg PO QHS [facility] Meclizine HCl (Antivert) 25 mg PO DAILY [facility] Last Admin: 06/26/18 10:03 Dose: 25 mg Documented by: Metoprolol Tartrate (Lopressor) 25 mg PO BID [facility] Last Admin: 06/26/18 10:02 Dose: 25 mg Documented by: Ondansetron HCl (Zofran) 4 mg IVP Q4H PRN PRN Reason: NAUSEA Patient Own Med: Cyclobenzaprine 7.5 Mg Tab 1 each PO DAILY PRN PRN Reason: MUSCLE SPASMS Patient Own Med: (Coricidin Hbp) 1 - 2 each PO DAILY PRN PRN Reason: COUGH Tramadol HCl (Ultram) 50 mg PO Q6H PRN PRN Reason: PAIN - MILD TO MODERATE (1-7) Trazodone HCl (Desyrel) 25 mg PO QHS [facility] Venlafaxine HCl (Effexor Xr) 150 mg PO DAILY [facility] Last Admin: 06/26/18 10:03 Dose: 150 mg Documented by: Vitamin D (Vitamin D3) 2,000 unit PO DAILY [facility] Last Admin: 06/26/18 10:04 Dose: 2,000 unit Documented by: Physical Exam - Vital Signs Vital Signs: Vital Signs - Last 24 Hrs Temp Pulse Pulse Resp BP BP Pulse Ox 06/26/18 08:00 98.0 F 80 16 135/70 94 L 06/26/18 04:09 86 20 131/62 96 06/26/18 00:58 16 06/25/18 23:55 97.4 F L 86 20 152/61 94 L 06/25/18 23:30 99.2 F 88 16 123/69 92 L 05/08/19 22:15 85 121/62 100 05/08/19 21:22 81 141/76 96 06/25/18 20:06 99.7 F H 103 H 16 142/82 97 - General General Appearance: Alert, Oriented x3, Cooperative, No acute distress, Anxious - Head Head exam: Normal inspection - Eye Eye exam: Normal appearance, PERRL, EOMI. negative: Conjunctival injection, Nystagmus Pupils: Normal accommodation - ENT ENT exam: Normal exam, Mucous membranes moist Ear exam: Normal external inspection. negative: External canal tenderness Nasal Exam: Normal inspection. negative: Discharge, Sinus tenderness Mouth exam: Normal external inspection, Tongue normal Teeth exam: Normal inspection. negative: Dental caries Throat exam: Normal inspection. negative: Tonsillar erythema, Tonsillar exudate - Neck Neck exam: Normal inspection, Full ROM. negative: Lymphadenopathy, Meningismus, Tenderness - Respiratory Respiratory exam: Normal lung sounds bilaterally. negative: Accessory muscle use, Chest wall tenderness, Decreased breath sounds, Prolonged expiratory, Respiratory distress - Cardiovascular Cardiovascular Exam: Normal rhythm, Normal heart sounds Peripheral Pulses: 2+: Radial (R), Radial (L) - GI/Abdominal GI/Abdominal exam: Soft, Normal bowel sounds, Tenderness (bilateral lower abdominal tenderness on palpation, L>R). negative: Distended, Guarding, Hernia, Rebound, Rigid - Rectal Rectal exam: Deferred. negative: Decreased rectal tone, Fecal impaction, Hemorrhoids, Mass - exam: Deferred - Extremities Extremities exam: Normal inspection, Full ROM, Normal capillary refill. negative: Tenderness - Back Back exam: Reports: Normal inspection, Full ROM. Denies: Muscle spasm, Rash noted, Tenderness - Neurological Neurological exam: Alert, Normal gait, Oriented X3, Reflexes normal - Psychiatric Psychiatric exam: Normal affect, Normal mood - Skin Skin exam: Dry, Intact, Normal color, Warm Results - Labs Result Diagrams: 06/26/18 06:11 06/26/18 06:00 Labs Last 24 Hours: Laboratory Results - last 24 hr 06/25/18 06/25/18 06/25/18 20:56 20:56 20:56 WBC 8.6 Corrected WBC RBC 3.96 Hgb 12.6 Hct 39.0 MCV 98.5 H MCH 31.8 MCHC 32.3 RDW 12.1 Plt Count 325 MPV 9.3 Gran % 70.3 Lymphocytes % 16.2 Monocytes % 10.8 H Eosinophils % 2.5 Basophils % 0.2 Absolute Neutrophils 6.07 Sodium 139 Potassium 3.7 Chloride 96 L Carbon Dioxide 31.0 H Anion Gap 12.0 BUN 12 Creatinine 0.6 Estimated GFR > 60 Random Glucose 92 Calcium 9.4 Total Bilirubin 0.30 AST 22 ALT 18 Alkaline Phosphatase 86 Total Protein 7.2 Albumin 4.6 Globulin 2.6 Albumin/Globulin Ratio 1.8 Lipase 31 Urine Color Yellow Urine Appearance Clear Urine pH 7.0 Ur Specific [place] 1.010 Urine Protein Negative Urine Glucose (UA) Negative Urine Ketones Negative Urine Blood Negative Urine Nitrite Negative Urine Bilirubin Negative Urine Urobilinogen 0.2 Ur Leukocyte Esterase Negative 06/25/18 06/26/18 06/26/18 21:12 06:00 06:11 WBC Cancelled 5.7 Corrected WBC Cancelled RBC Cancelled 3.39 L Hgb Cancelled 10.7 L Hct Cancelled 33.7 L MCV Cancelled 99.4 H MCH Cancelled 31.5 MCHC Cancelled 31.8 L RDW Cancelled 12.2 Plt Count Cancelled 286 MPV Cancelled 9.6 Gran % Cancelled 62.5 Lymphocytes % Cancelled 20.9 Monocytes % Cancelled 11.8 H Eosinophils % Cancelled 4.4 Basophils % Cancelled 0.4 Absolute Neutrophils Cancelled 3.56 Sodium 140 Potassium 4.1 Chloride 103 Carbon Dioxide 29.0 Anion Gap 8.0 BUN 12 Creatinine 0.6 Estimated GFR > 60 Random Glucose 114 H Calcium 8.7 L Total Bilirubin AST ALT Alkaline Phosphatase Total Protein Albumin Globulin Albumin/Globulin Ratio Lipase Urine Color Urine Appearance Urine pH Ur Specific [place] Urine Protein Urine Glucose (UA) Urine Ketones Urine Blood Urine Nitrite Urine Bilirubin Urine Urobilinogen Ur Leukocyte Esterase VTE H&P Assessment - Risk for VTE Risk for VTE: Yes Risk Level: Moderate Risk Assessment Date: 06/26/18 Risk Assessment Time: 11:26 VTE Orders Placed or Will Be Placed: No VTE Reason for No Prophylaxis: Contraindicated (not expected to stay >24 hours, currently on Plavix) Plan - Detailed Diagnosis and Plan (1) Diverticulitis of sigmoid colon Current Visit: Yes Status: Acute Base Code: K57.32 - DVTRCLI OF LG INT W/O PERFORATION OR ABSCESS W/O BLEEDING Comment: 06/26/18: -Abd/Pelvic CT: acute mid-sigmoid diverticulitis with no perforation or abscess; umbilical hernia containing unobstructed colon, similar to previous studies -DC Vanco and Zosyn started in ED -Begin Cipro 400mg IVPB q12h, Flagyl IVP 500mg q8h -Zofran 4mg prn nausea -Trial Ultram 50mg q6h prn abdominal pain -Encourage PO fluids (2) Abdominal pain Current Visit: Yes Status: Acute Base Code: R10.9 - UNSPECIFIED ABDOMINAL PAIN Comment: 06/26/18: -Intermittent lower abdominal pain/cramping -Dilaudid 1mg IVP prn pain -Trial Ultram 50mg q6h prn pain -Current pain 03/30 (3) DVT prophylaxis Current Visit: Yes Status: Acute Base Code: Z29.9 - ENCOUNTER FOR PROPHYLACTIC MEASURES, UNSPECIFIED Comment: 06/26/18: -Moderate risk due to age, hospitalization, and illness -No prophylaxis started at this time as pt expected to discharge in less than 24 hours -Encourage ambulation within the room -Continue home dose of Plavix (4) Full code status Current Visit: Yes Status: Acute Base Code: Z78.9 - OTHER SPECIFIED HEALTH STATUS Comment: 06/26/18: -Full code this admission
[2018-06-26] MEDS ORDERED: METRONIDAZOLE IVPB 500 MG/100 ML BAG IVPB SCH (11:30)
[2018-06-26] MEDS: CIPROFLOXACIN LACTATE/D5W 400 MG/200 ML BAG IVPB SCH ×2 (12:16→23:19)
[2018-06-26] MEDS: METRONIDAZOLE IVPB 500 MG/100 ML BAG IVPB SCH ×2 (13:10→20:38)
[2018-06-26] MEDS: TRAMADOL HCL 50 MG TABLET PO PRN ×2 (13:18→21:30)
[2018-06-26] MEDS: DOCUSATE SODIUM 100 MG CAPSULE PO SCH (21:30)
[2018-06-26] MEDS ORDERED: MAGNESIUM OXIDE 400 MG TABLET PO SCH (22:00)
[2018-06-26] MEDS ORDERED: TRAZODONE 50 MG TABLET PO SCH (22:00)
[2018-06-27] MEDS ORDERED: VANCOMYCIN HCL 2,000 MG in 0.9 % SODIUM CHLORIDE 500ML 500 ML IVPB SCH (03:00)
[2018-06-27] MEDS: METRONIDAZOLE IVPB 500 MG/100 ML BAG IVPB SCH (04:31)
[2018-06-27 06:51] LABS: ABSOLUTE NEUTROPHIL COUNT 3.27; BASO % 0.4 % (0-6); EOS % 5.9 % (0-6); GRAN % 57.8 % (47-80); HEMATOCRIT 36.1 % (35.0-47.0); HEMOGLOBIN 11.3 gm/dl (11.6-16.0); LYMPH % 25.4 % (16-45); MEAN CELL VOLUME 100.6 fl (81-97); MEAN CORPUSCULAR HGB CONC 31.3 g/dl (32-36); MEAN PLATELET VOLUME 10.2 fl (7.4-10.4); MONO % 10.5 % (0-9); PLATELET COUNT 208 K/uL (130-400); RED BLOOD COUNT 3.59 M/uL (3.80-5.40); RED CELL DISTRIBUTION WIDTH 12.2 % (11.5-14.5); WHITE BLOOD COUNT W/O DIFF 5.6 K/uL (4.2-12.2)
[2018-06-27 06:57] LABS: MEAN CORPUSCULAR HEMOGLOBIN 31.4 pg (27-33)
[2018-06-27 07:03] LABS: BLOOD UREA NITROGEN 8 mg/dL (8-23); CREATININE 0.5 mg/dL (0.5-0.9); EST GLOMERULAR FILTRATION RATE > 60 mL/min; GLUCOSE,RANDOM 90 mg/dL (74-109)
[2018-06-27] MEDS: ACETAMINOPHEN 500 MG TABLET PO PRN (08:17)
[2018-06-27] MEDS: CHOLECALCIFEROL 1,000 UNIT TABLET PO SCH (09:51)
[2018-06-27] MEDS: VENLAFAXINE ER 75 MG CAPSULE PO SCH (09:51)
[2018-06-27] MEDS: CLOPIDOGREL 75MG TABLET PO SCH (09:52)
[2018-06-27] MEDS: ASPIRIN 81 MG TABEC PO SCH (09:52)
[2018-06-27] MEDS: METOPROLOL TART 25 MG TABLET PO SCH (09:52)
[2018-06-27] MEDS: MECLIZINE 25 MG TABLET PO SCH (09:52)
[2018-06-27] MEDS: DOCUSATE SODIUM 100 MG CAPSULE PO SCH (09:52)
--- NOTE | 2018-06-27 10:42 | Discharge Summary ---
Providers Discharge Summary Date: 06/27/18 Date of admission: 06/25/18 23:37 Expected Date of Discharge: 06/27/18 Attending physician: HO BLAKE Primary care physician: Magy Li N.P. Physical Exam - Vital Signs Vital Signs: Vital Signs - Last 24 Hrs Temp Pulse Resp BP Pulse Ox 06/27/18 08:00 98.2 F 83 16 152/75 93 L 06/26/18 21:50 97.9 F 86 20 162/77 95 06/26/18 20:43 18 06/26/18 16:00 98.1 F 83 16 186/60 98 - General General Appearance: Alert, Oriented x3, Cooperative, No acute distress, Anxious - Head Head exam: Normal inspection - Eye Eye exam: Normal appearance, PERRL, EOMI. negative: Conjunctival injection, Nystagmus Pupils: Normal accommodation - ENT ENT exam: Normal exam, Mucous membranes moist Ear exam: Normal external inspection. negative: External canal tenderness Nasal Exam: Normal inspection. negative: Discharge, Sinus tenderness Mouth exam: Normal external inspection, Tongue normal Teeth exam: Normal inspection. negative: Dental caries Throat exam: Normal inspection. negative: Tonsillar erythema, Tonsillar exudate - Neck Neck exam: Normal inspection, Full ROM. negative: Lymphadenopathy, Meningismus, Tenderness - Respiratory Respiratory exam: Normal lung sounds bilaterally. negative: Accessory muscle use, Chest wall tenderness, Decreased breath sounds, Prolonged expiratory, Respiratory distress - Cardiovascular Cardiovascular Exam: Normal rhythm, Normal heart sounds Peripheral Pulses: 2+: Radial (R), Radial (L) - GI/Abdominal GI/Abdominal exam: Soft, Normal bowel sounds, Tenderness (left-sided tenderness with palpation). negative: Distended, Guarding, Hernia, Rebound, Rigid - Rectal Rectal exam: Deferred. negative: Decreased rectal tone, Fecal impaction, Hemorrhoids, Mass - exam: Deferred - Extremities Extremities exam: Normal inspection, Full ROM, Normal capillary refill. negative: Tenderness - Back Back exam: Reports: Normal inspection, Full ROM. Denies: Muscle spasm, Rash noted, Tenderness - Neurological Neurological exam: Alert, Normal gait, Oriented X3 - Psychiatric Psychiatric exam: Normal affect, Normal mood - Skin Skin exam: Dry, Intact, Normal color, Warm Hospitalization - Hospitalization Admission Diagnosis: Acute sigmoid diverticulitis; abdominal pain - Problem List/Discharge Diagnosis (1) Diverticulitis of sigmoid colon Current Visit: Yes Status: Acute Base Code: K57.32 - DVTRCLI OF LG INT W/O PERFORATION OR ABSCESS W/O BLEEDING Comment: 06/27/18: -Abd/Pelvic CT: acute mid-sigmoid diverticulitis with no perforation or abscess; umbilical hernia containing unobstructed colon, similar to previous studies -DC Vanco and Zosyn started in ED -Begin Cipro 400mg IVPB q12h, Flagyl IVP 500mg q8h -Zofran 4mg prn nausea -No relief from Ultram 50mg q6h prn abdominal pain -Has tolerated PO diet (2) Abdominal pain Current Visit: Yes Status: Acute Base Code: R10.9 - UNSPECIFIED ABDOMINAL PAIN Comment: 06/27/18: -Intermittent lower abdominal pain/cramping -Current pain 03/30, denies wanting any pain medications for home -Encouraged acetaminophen use prn (3) DVT prophylaxis Current Visit: Yes Status: Acute Base Code: Z29.9 - ENCOUNTER FOR PROPHYLACTIC MEASURES, UNSPECIFIED Comment: 06/27/18: -Moderate risk due to age, hospitalization, and illness -Encourage ambulation within the room -Continue home dose of Plavix (4) Full code status Current Visit: Yes Status: Acute Base Code: Z78.9 - OTHER SPECIFIED HEALTH STATUS Comment: 06/27/18: -Full code this admission - Hospitalization Course Disposition: Home, Self-Care Hospital Course: 73 year old female patient presented to ED for evaluation of abdominal pain. Patient reported generalized lower abdominal pain with intermittent nausea. States she has noted some intermittent pain for the past 2 weeks. Reports no diarrhea, but chronic constipation. States her last BM was 06/25/18. Patient reports a history of diverticulosis and abdominal adhesions due to multiple c- sections and a hysterectomy. Patient also reports a history of cardiac stenting last January, and was started on Plavix at that time. Reports additional history of HTN, anxiety, and depression. PCP: Magy Li NP ED Course: Temp 99.7F, HR 103, RR 16, BP 142/82, Pulse Ox 97% ABD/Pelvic CT: acute mid-sigmoid diverticulitis with no perforation or abscess, umbilical hernia containing unobstructed colon, similar to previous studies UA negative WBC 8.6 Started Zosyn and Vanco 06/26/18: Patient A&O x 4, resting comfortably in bed. Patient reports lower abdominal pain /, improved from last night, with 1 dose of Dilaudid in ED. Has been tolerating PO fluids with no nausea or vomiting. 06/27/18: Patient A&O x 4, resting comfortably in bed. Patient reports improvement in abdominal pain, passing gas, and no nausea/vomiting. Has tolerated advancing diet. Will dc home with Cipro and Flagyl for a total course of treatment of 7 days. Procedures: Imaging and X-Rays 06/25/18 20:32 ABDOMEN/PELVIS WO CONTRAST [CT] Stat Abnormal Labs: Abnormal Lab Results 06/25/18 06/25/18 06/26/18 Range/Units 20:56 20:56 06:00 RBC (3.80-5.40) M/uL Hgb (11.6-16.0) gm/dl Hct (35.0-47.0) % MCV 98.5 H (81-97) fl MCHC (32-36) g/dl Monocytes % 10.8 H (0-9) % Chloride 96 L (98-107) mmol/L Carbon Dioxide 31.0 H (22-29) mmol/L Random Glucose 114 H (74-109) mg/dL Calcium 8.7 L (8.8-10.2) mg/dL 06/26/18 06/27/18 Range/Units 06:11 06:19 RBC 3.39 L 3.59 L (3.80-5.40) M/uL Hgb 10.7 L 11.3 L (11.6-16.0) gm/dl Hct 33.7 L (35.0-47.0) % MCV 99.4 H 100.6 H (81-97) fl MCHC 31.8 L 31.3 L (32-36) g/dl Monocytes % 11.8 H 10.5 H (0-9) % Chloride (98-107) mmol/L Carbon Dioxide (22-29) mmol/L Random Glucose (74-109) mg/dL Calcium (8.8-10.2) mg/dL Condition at Discharge: (2) Stable Discharge Medications - Discharge Medications Prescriptions: Ciprofloxacin HCl [Cipro] 500 mg PO Q12HR #11 tablet Docusate Sodium [Colace] 100 mg PO BID #60 cap Metronidazole [Flagyl] 500 mg PO Q8H #17 tablet Ondansetron [Zofran Odt] 4 mg PO Q6H PRN #20 tab.rapdis PRN Reason: Nausea/Vomiting Home Medications: Ambulatory Orders Meclizine HCl [Travel Sickness] 25 mg PO QD tab 08/19/17 [Last Taken 06/25/18] Aspirin [Aspir 81] 81 mg PO QD tab 02/13/18 [Last Taken 06/25/18] Clopidogrel Bisulfate [Clopidogrel] 75 mg PO QD tab 02/27/18 [Last Taken 06/25/18] Dextromethorphn/Acetaminoph/Cp [Coricidin Hbp Flu Tablet] 1 each PO 1-2XD PRN tab 02/27/18 [Last Taken Unknown] Cholecalciferol (Vitamin D3) [Vitamin D3] 2,000 unit PO DAILY 06/25/18 [Last Taken 06/25/18] Cyclobenzaprine HCl 7.5 mg PO ASDIR PRN 06/25/18 [Last Taken Unknown] Ciprofloxacin HCl [Cipro] 500 mg PO Q12HR #11 tablet 06/27/18 [Last Taken Unknown] Docusate Sodium [Colace] 100 mg PO BID #60 cap 06/27/18 [Last Taken Unknown] Metronidazole [Flagyl] 500 mg PO Q8H #17 tablet 06/27/18 [Last Taken Unknown] Ondansetron [Zofran Odt] 4 mg PO Q6H PRN #20 tab.rapdis 06/27/18 [Last Taken Unknown] Discharge Plan - Discharge Instructions Activity at Discharge: Increase Activity as Tolerated Diet at Discharge: Advance to Usual Diet Additional Instructions: -Your next dose of Cipro is due tonight, take 1 tab twice a day until gone -Your next dose of Flagyl is due around 1pm, take 1 tab 3 times a day -Use the Zofran as needed for nausea -Appointment with ALISA Membreno July 10 at 4:30pm. Quality Measures - Quality Measures Quality Measures: Advance Directives, Documentation of Current Medications in Medical Record, Elder Maltreatment Screen and Follow-Up Plan, Screening for High Blood Pressure and F/U Documented - Current Medications Quality Measure: Measure #130: Documentation of Current Medications Documentation of Current Medications: <Current Medications Documented/Reviewed> [M1896] - Blood Pressure Screening Quality Measure: Screening for High Blood Pressure and Follow-Up Documented Does Patient Have Any of the Following: Active Dx of HTN Blood Pressure Classification: Hypertensive Reading Systolic Measurement: 152 Diastolic Measurement: 75 Screening for High Blood Pressure: Patient Exclusion, Hx of HTN [G9744] - Advance Directives Quality Measure: Measure #47: Care Plan Advance Directives Established: Yes Advance Directives Information Provided To Patient: No Advance Directives on File: No Living Will: Yes Power of Obiee Report Developer: Yes Power of Obiee Report Developer Name: CHACHA UGARTE Advance Care Planning: <Care Plan/Decision Maker Documented; Discussed & Docum ented> [8803F] - Elder Abuse Suspicion Index Screening: Elder Abuse Suspicion Index Screening Rely on people for bathing, dressing, shopping, banking, etc: No Prevented from getting food, clothes, medication, etc: No Made to feel shamed or threatened by someone: No Forced to sign papers or use money against will: No Feel afraid, touched in ways not wanted or hurt physically: No Poor eye contact, withdrawn, malnourished, cuts or bruises: No Screening Result: Negative result EASI Reference Information: Sofi ESCOBAR, Gloria C, Jamey D, Bea M.Development and validation of a tool to assist physicians identification of elder abuse: The Elder Abuse Suspicion Index (EASI ). Journal of Elder Abuse and Neglect, 2008; 20 (3): 276-300. - Elder Maltreatment Screen Quality Measures: Elder Maltreatment Screen and Follow-Up Plan Elder Maltreatment Screen: <Negative, No Follow-Up Plan Required> [T1732]
== END 2018-06-27 11:40 | disposition home or self-care (01) ==
LOC: ER 19:59 → MEDSURG 23:37
PROVIDERS: ADMIT Internal Medicine; ATTEND Internal Medicine
DX: K57.32 Diverticulitis of large intestine without perforation or abscess without bleeding (principal); R10.32 Left lower quadrant pain; F41.9 Anxiety disorder, unspecified; R42 Dizziness and giddiness; K21.9 Gastro-esophageal reflux disease without esophagitis; M19.90 Unspecified osteoarthritis, unspecified site; Z95.5 Presence of coronary angioplasty implant and graft; Z87.19 Personal history of other diseases of the digestive system
CPT/HCPCS: 83690; 85025 ×3; 80048 ×2; 80053; 81003; 74176; G0378 ×3; J0744; J3490 ×2; J3370; J1170; 96365; 96374; 96375; 99217; 99220; 99285; J2543; J7030; J7050

== ENCOUNTER 2019-01-08 13:48 | Day surgery (SDC) | payer MEDICARE ==
[2019-01-08] MEDS ORDERED: LIDOCAINE 2% MDV (20MG/ML) 20ML VIAL IV ONE (13:49)
[2019-01-08] MEDS ORDERED: PROPOFOL 10 MG/ML VIAL IV ONE (13:49)
--- NOTE | 2019-01-09 12:50 | Operative Note ---
OPERATION: COLONOSCOPY with cold forceps polypectomy and cold snare polypectomy. PREOPERATIVE DIAGNOSIS: History of diverticulitis, history of polyps, and surveillance. POSTOPERATIVE DIAGNOSES: 1. Sigmoid diverticulosis. 2. Sigmoid colon polyp. 3. Ascending colon polyp. SPECIMENS: Ascending colon polyp and sigmoid polyp. ESTIMATED BLOOD LOSS: Minimum. COMPLICATIONS: None apparent. PREPARATION QUALITY: Good. PROCEDURE: After informed consent was obtained from the patient, she was placed in the left lateral decubitus position in the endoscopy suite where she was sedated and monitored by the department of anesthesia. Digital rectal examination was unremarkable. A well-lubricated [id number] colonoscope was inserted into the rectum and advanced through a moderately to severely diverticular-laden sigmoid colon to the descending colon, transverse colon, ascending colon and cecum. Cecum and cecal bulb and ileocecal valve and appendiceal orifice were unremarkable. Preparation quality was good. There was a diminutive ascending colon polyp removed with a cold forceps. The remainder of the ascending colon and transverse colon and descending colon were unrevealing. The sigmoid colon revealed a sessile 5 mm polyp removed with a cold snare. The polyp was retrieved. Minimal bleeding was noted. There were [id number] sigmoid diverticular changes. The rectum was unremarkable in forward and J-turn views. No inflammation was seen throughout the length of the colon. The endoscope was straightened, the rectal ampulla deflated, and the endoscope was removed. RECOMMENDATIONS: The patient should follow a high-fiber diet. I recommend a repeat exam in 3-5 years pending tissue histology. In the meantime, she should follow a high-fiber diet and use a fiber supplement. As always, thank you for allowing me to participate in the healthcare of your patients. JAMI
== END 2019-01-08 15:40 | disposition home or self-care (01) ==
LOC: HOP 13:48
PROVIDERS: ATTEND Internal Medicine Gastroenterology
DX: Z12.11 Encounter for screening for malignant neoplasm of colon (principal); Z86.010 Personal history of colon polyps; Z86.39 Personal history of other endocrine, nutritional and metabolic disease; D12.2 Benign neoplasm of ascending colon; D12.5 Benign neoplasm of sigmoid colon; K57.30 Diverticulosis of large intestine without perforation or abscess without bleeding; I10 Essential (primary) hypertension; E78.00 Pure hypercholesterolemia, unspecified; R42 Dizziness and giddiness

== ENCOUNTER 2019-01-22 05:21 | Day surgery (SDC) | payer MEDICARE ==
[2019-01-22] MEDS ORDERED: LIDOCAINE 2% MDV (20MG/ML) 20ML VIAL IV ONE (05:22)
[2019-01-22] MEDS ORDERED: MIDAZOLAM HCL 2MG/2ML VIAL IV ONE (05:22)
[2019-01-22] MEDS ORDERED: PROPOFOL 10 MG/ML VIAL IV ONE (05:22)
[2019-01-22] MEDS ORDERED: ROPIVACAINE HCL (NAROPIN) /PF 5MG/ML 20ML VIAL IV ONE (05:22)
[2019-01-22] MEDS ORDERED: DEXAMETHASONE 4 MG/ML 1ML VIAL IVP ONE (05:22)
[2019-01-22] MEDS ORDERED: FAMOTIDINE 20MG TABLET PO ONE (06:00)
[2019-01-22] MEDS ORDERED: SCOPOLAMINE 1 PATCH TDSY TD ONE (06:00)
[2019-01-22] MEDS ORDERED: RINGERS SOLUTION,LACTATED 1,000 ML IV ONE (06:00)
[2019-01-22] MEDS ORDERED: VANCOMYCIN 1GM/200ML PREMIX 1 GM/200 ML PIGGYBACK IVPB ONE ×2 (06:00→18:00)
[2019-01-22] MEDS ORDERED: NALOXONE 0.4 MG/1 ML VIAL IVP PRN (09:15)
[2019-01-22] MEDS ORDERED: ONDANSETRON HCL IV 4 MG/2 ML VIAL IVP PRN (09:15)
[2019-01-22] MEDS ORDERED: AL HYDROX/MAG HYDROX 30ML UD PO PRN (09:15)
[2019-01-22] MEDS ORDERED: ACETAMINOPHEN W/ CODEINE 300MG/30MG TABLET PO PRN (09:15)
[2019-01-22] MEDS ORDERED: MAGNESIUM HYDROXIDE 30 ML UDC PO PRN (09:15)
[2019-01-22] MEDS ORDERED: SENNOSIDES/DOCUSATE SODIUM UD CAPSULE PO PRN (09:15)
[2019-01-22] MEDS ORDERED: ZOLPIDEM TARTRATE 5 MG TABLET PO PRN (09:15)
[2019-01-22] MEDS ORDERED: DIPHENHYDRAMINE HCL 25 MG CAPSULE PO PRN (09:15)
[2019-01-22] MEDS ORDERED: METOCLOPRAMIDE HCL 10 MG/2 ML VIAL IVP PRN (09:15)
--- NOTE | 2019-01-22 10:26 | Operative Note ---
DATE OF SURGERY: 01/22/2019 SURGEON: Jarad Dietz D.O. REFERRING PHYSICIAN: Maykel Hadley M.D. PREOPERATIVE DIAGNOSIS: OSTEOARTHRITIS OF THE RIGHT KNEE. POSTOPERATIVE DIAGNOSIS: OSTEOARTHRITIS OF THE RIGHT KNEE. OPERATION: RIGHT TOTAL KNEE ARTHROPLASTY. DESCRIPTION: This 73-year-old female was taken to the Operating Room and placed in the supine position on the operating room table. Spinal anesthesia was induced by the Department of Anesthesia. The right lower extremity was elevated, it was prepped with Hibiclens and draped in the usual sterile fashion. It was exsanguinated and the tourniquet inflated to 300 mmHg. An anterior longitudinal midline incision was made followed by a medial parapatellar arthrotomy incision. An intracondylar drill hole was made for the intramedullary alignment tiffanie and the intracondylar drill hole was used to guide the alignment tiffanie with a 9 mm 5 degree valgus cut made in the distal femur. Once the appropriate alignment had been assured the appropriate cuts were made. A sizing jig was affixed and a size 62.5 was seen to be the appropriate size and the 4-in-1 cutting block was pinned in 3 degrees fixed gentle rotation. The appropriate cuts were made and the wafers of bone were removed. We then directed our attention to the proximal tibia and an extramedullary alignment guide was used to cut the proximal tibia referencing a 10 mm cut off the lateral tibial plateau after the appropriate alignment had been assured. A 3 degree posterior slope cut was made and the wafer of bone was removed. Remnants of the menisci and osteophytes were removed from the posterior aspect of the joint. The tibia was sized to a size 67, a 71 was seen to overhang about 1-1.5 mm, therefore, a 67 mm tibial baseplate was subsequently used. The wound was copiously irrigated with pulse lavage lactated Ringer's solution removing all debris from the joint. The patella was cut and restored to anatomic height with a 34 x 7.8 mm trial. The femoral component was 62.5 trial and a 67 tibial baseplate and a 10 mm bearing was used. The knee was then taken through range of motion, full extension was easily accomplished with full flexion to 135 degrees with no varus or valgus instability. The patellofemoral joint was also seen to be stable. All trial components were then removed and the wound again copiously irrigated with pulse lavage lactated Ringer's solution, old clot and debris was removed from the joint. All components were cemented into place and excess cement was removed after the insertion of each component. Initially the 67 tibial baseplate was cemented followed by the insertion of the tibial bearing followed by the femoral component and finally the patella was cemented. Once the cement had hardened, the knee was again taken through range of motion and excellent stability of the components were identified. A drain was placed through a separate stab incision. The arthrotomy incision was closed with #2 Vicryl, subcutaneous tissue was closed with 0 Vicryl, and the skin was stapled. Sterile dressings with a Polar Pad were applied and the patient was taken to the Recovery Room in satisfactory condition. GROSS PATHOLOGY: This patient demonstrated severe osteoarthritis of the patellofemoral joint and of the medial compartment with full thickness articular cartilage loss being noted in both areas with the lateral compartment showing Grade 2 changes. In addition, the patient demonstrated blood within the knee with hemosiderin staining of the fat superiorly and the infrapatellar fat pad, but no active bleeding was noted within the joint. Once the joint had been thoroughly debrided no further bleeding was identified. Final components inserted were [employer] Vanguard size 62.5 cruciate retaining femur, a size 67 tibial baseplate, a 10 mm anterior stabilizing bearing and 34 x 7.8 mm patella was used. JOB NUMBER: [id number] MTDD
[2019-01-22] MEDS: HYDROMORPHONE HCL 2 MG/ML VIAL IV PRN ×6 (11:47→22:49)
[2019-01-22] MEDS ORDERED: FLU VAC QS 2019-20 (INPT, 6MO+) 60MCG/0.5ML IM ONE (13:44)
[2019-01-22] MEDS: RINGERS SOLUTION,LACTATED 1,000 ML IV SCH (14:45)
[2019-01-22] MEDS ORDERED: FONDAPARINUX 2.5 MG/0.5 ML SYR SQ SCH (16:00)
--- NOTE | 2019-01-22 19:13 | Rehab Evaluation ---
Patient Information - Patient Information Diagnosis: OA R knee, s/p TKA Ordered Treatment: PT Evaluate and Treat Status: Initial Evaluation Surgery: Yes (R TKA) Date of Surgery: 01/22/19 History: Detail (Pt has experienced progressive degeneration of R knee, underwent elective total knee arthroplasty today.) Past Medical/Surgical Hx: PAST MEDICAL/SURGICAL HISTORY Past Surgical History left knee scope adhesion reemoval abd x 3 2 hysterectomy umbilical hernia repair gallbladder stomach breast reduction c-scope LT THUMB ARTHROPLASTY PMH - Respiratory Hx Respiratory Disorders No Hx Bronchitis Yes: not recently Hx Sleep Apnea No Hx of CPAP No Comment: SINUS CONGESTION CURRENTLY PMH - Cardiovascular Hx Cardiovascular Disorders No Hx Cardiac Catheterization Yes: stent [id number] Hx Hypertension Yes: good control w med Hx Coronary Artery Disease Yes Hx Coronary Stent Yes: 01/24/18 Hx Heart Murmur Yes: new DX 01/24/18 Exercise Tolerance Good PMH - Neuro Hx Neurological Disorders Yes Hx Dizziness Yes: vertigo controlled with meds PMH - GI Hx Gastrointestinal Disorders Yes Hx Diverticulitis Yes Hx Gastroesophageal Reflux Yes: relief with omeprazole Hx Irritable Bowel Yes: hx diverticulosis Hx Ulcer Yes: several times PMH - Hx Genitourinary Disorders No Hx Renal Disease No Comment: left kidney smaller than right kidney according to MRI PMH - Endocrine Hx Endocrine Disorders No PMH - Musculoskeletal Hx Musculoskeletal Disorders Yes Hx Arthritis Yes: generalized Comment: HX ARTHROPLASTY LF THUMB DOING GOOD PMH - Psych Hx Psychiatric Problems Yes Hx Anxiety Yes: controlled with meds Hx Depression Yes PMH - Hematology/Oncology Hx Hematology/Oncology No Disorders Premorbid Status: Detail (Pt was ambulating without assistive device, but was limited in walking due to R knee pain. L knee is arthritic as well and needs replacement per patient, but she is not planning any surgery for that knee at this point. She completed cardiac rehab earlier this year with a good outcome. 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 She does not need to go to the second floor. She has a four wheeled walker that a friend loaned her, but needs to obtain a front wheeled walker immediate post-operative period. She has three steps to enter the house w/no handrails, but warren are near and the door is at the top of the steps. She has a walk-in shower w/hand-held shower head, standard height toilet, and no grab bars in shower or near toilet. She is scheduled for out patient PT evaluation 01/26/19.) Precautions: Shirley, Fall - Time With Patient Total Time Spent With Patient (Min): 50 Treatment Procedures: Detail (PT Evaluation, initial mobility training, gait and transfer training.) Subjective Information - Subjective Information Per Patient (Pt somewhat drowzy in bed upon arrival, cooperative for therapy. Has been experiencing 10/10 pain in R knee which she describes as "burning".) Objective Data - Pain Pain Present: Yes Pain Intensity: 10 Pain Scale Used: Numeric (1 - 10) - Mental Status Patient Orientation: Oriented x3 - Visual Perception Appears within normal limits for therapeutic activities - ROM Not within normal limits (AROM in L LE is WNL at hip, knee and ankle; AROM in R LE is WNL at hip and ankle; limited in R knee due to surgical procedure and bulky dressing.) - Strength/Tone Not within normal limits (Grossly 3-/5 in R hip flexion, extension, abduction, adduction, knee flexion and extension, 3/5 ankle dorsiflexion; grossly 4/5 in L LE muscle groups.) - Coordination Appears within normal limits for therapeutic activities - Bed Mobility Needs Assist (Required assist for managing R LE out of and into bed.) - Transfers Needs Assist (CGA/min assist for sit/stand transfers from bedside to front wheeled walker, to/from toilet, w/VC's for hand placement.) - Balance Balance Sitting: Good Balance Standing: Good (With front wheeled walker.) - Sensation Intact - Gait Detail (Pt ambulated from bedside to bathroom toilet and back to bed, w/CGA and VCs for proper technique, assist for IV pole, WBAT R LE and front wheeled walker. Ambulated very slowly and required VCs to keep her eyes open.) Therapy Assessment - Therapy Assessment Detail (Pt exhibits mobility impairments consistent with her post-surgical condition. She will benefit from 1-2 more physical therapy sessions to ensure safe discharge to home.) Patient Education - Patient Education Teaching Topic: Equipment Use, Exercise/Activity Response: Reinforcement Needed, Verbalize Understanding Teaching Method: Discussion Teaching Recipient: Patient Barriers To Learning: None Problem List - Problem List Physical Therapy Problem List: Detail (1. Requires assist for bed mobility. 2. Requires assist for transfers. 3. Difficulty walking. 4. Limited ROM R knee and impaired strength in R LE.) Goals - Goals Physical Therapy Goals: 1. Pt will safely and independently get into/out of bed. 2. Pt will safely transfer sitting<>standing w/supervision. 3. Pt will safely ambulate household distances with front wheeled walker w/supervision. 4. Pt will safely ascend/descend steps to ensure safe entry/exit at home. 5. Pt will be independent in beginning home exercise program. Prognosis - Prognosis Good Plan - Plan Physical Therapy Plan: Pt will be seen 1-2 more times tomorrow to facilitate mobility, transfers, gait, and instruct in beginning home exercise program.
[2019-01-22] MEDS: ACETAMINOPHEN W/ CODEINE 300MG/30MG TABLET PO PRN (19:50)
[2019-01-22] MEDS: METOPROLOL TART 25 MG TABLET PO SCH (21:18)
[2019-01-22] MEDS: ASPIRIN 325 MG TAB ENTERIC-COATED PO SCH (21:18)
[2019-01-22] MEDS ORDERED: ATORVASTATIN 20 MG TABLET PO SCH (22:00)
[2019-01-22] MEDS ORDERED: MAGNESIUM OXIDE 400 MG TABLET PO SCH (22:00)
[2019-01-23] MEDS: ACETAMINOPHEN W/ CODEINE 300MG/30MG TABLET PO PRN ×4 (01:00→16:01)
[2019-01-23] MEDS ORDERED: VENLAFAXINE ER 75 MG CAPSULE PO SCH (10:00)
[2019-01-23] MEDS: ASPIRIN 325 MG TAB ENTERIC-COATED PO SCH (10:16)
[2019-01-23] MEDS: METOPROLOL TART 25 MG TABLET PO SCH (10:17)
[2019-01-23] MEDS: RINGERS SOLUTION,LACTATED 1,000 ML IV SCH (10:20)
--- NOTE | 2019-01-23 10:31 | Rehab Evaluation ---
Patient Information - Patient Information Diagnosis: OA R knee, s/p TKA Ordered Treatment: OT Evaluate and Treat Status: Initial Evaluation Surgery: Yes (R TKA) Date of Surgery: 01/22/19 History: Detail (Pt has experienced progressive degeneration of R knee, underwent elective total knee arthroplasty today.) Past Medical/Surgical Hx: PAST MEDICAL/SURGICAL HISTORY Past Surgical History left knee scope adhesion reemoval abd x 3 2 hysterectomy umbilical hernia repair gallbladder stomach breast reduction c-scope LT THUMB ARTHROPLASTY PMH - Respiratory Hx Respiratory Disorders No Hx Bronchitis Yes: not recently Hx Sleep Apnea No Hx of CPAP No Comment: SINUS CONGESTION CURRENTLY PMH - Cardiovascular Hx Cardiovascular Disorders No Hx Cardiac Catheterization Yes: stent [id number] Hx Hypertension Yes: good control w med Hx Coronary Artery Disease Yes Hx Coronary Stent Yes: 01/24/18 Hx Heart Murmur Yes: new DX 01/24/18 Exercise Tolerance Good PMH - Neuro Hx Neurological Disorders Yes Hx Dizziness Yes: vertigo controlled with meds PMH - GI Hx Gastrointestinal Disorders Yes Hx Diverticulitis Yes Hx Gastroesophageal Reflux Yes: relief with omeprazole Hx Irritable Bowel Yes: hx diverticulosis Hx Ulcer Yes: several times PMH - Hx Genitourinary Disorders No Hx Renal Disease No Comment: left kidney smaller than right kidney according to MRI PMH - Endocrine Hx Endocrine Disorders No PMH - Musculoskeletal Hx Musculoskeletal Disorders Yes Hx Arthritis Yes: generalized Comment: HX ARTHROPLASTY LF THUMB DOING GOOD PMH - Psych Hx Psychiatric Problems Yes Hx Anxiety Yes: controlled with meds Hx Depression Yes PMH - Hematology/Oncology Hx Hematology/Oncology No Disorders Premorbid Status: Detail (Pt was ambulating without assistive device, but was limited in walking due to R knee pain. L knee is arthritic as well and needs replacement per patient, but she is not planning any surgery for that knee at this point. She completed cardiac rehab earlier this year with a good outcome. 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 She does not need to go to the second floor. She has a four wheeled walker that a friend loaned her, but needs to obtain a front wheeled walker immediate post-operative period. She has three steps to enter the house w/no handrails, but warren are near and the door is at the top of the steps. She has a walk-in shower w/hand-held shower head, standard height toilet, and no grab bars in shower or near toilet. She has a shower seat in the basement that her spouse will be bringing upstairs. She is scheduled for outpatient PT evaluation 01/26/19. Her and spouse share home mgmt and meal prep and spouse is responsible for laundry as it is in the basement.) Precautions: Secor, Fall, Other (WBAT right LE) - Time With Patient Total Time Spent With Patient (Min): 40 Treatment Procedures: Detail (OT eval low complexity) Subjective Information - Subjective Information Per Patient Objective Data - Pain Pain Present: Yes (07/28) - Mental Status Patient Orientation: Oriented x3 - Visual Perception Appears within normal limits for therapeutic activities - ROM Within normal limits (Von UE AROM WNL) - Strength/Tone Within normal limits (Von UE strength WNL) - Coordination Appears within normal limits for therapeutic activities - Bed Mobility Independent (Ind with supine to sit after verbal cues for modified technique.) - Transfers Independent (Ind with sit to stand from EOB and chair heights.) - Balance Balance Sitting: Good Balance Standing: Good - Sensation Intact - Gait Detail (Pt ambulating in room with 2 wheeled walker and SBA.) - ADL's/IADL's Detail (Pt educated and able to demonstrate learning of modified LE dressing techniques including doffing briefs and slipper socks and donning underwear, pants and tennis shoes. Pt required assist to tie right shoe but reports she has slip on shoes at home. Reviewed kitchen and shower safety and modifications, pt verbalized understanding.) Therapy Assessment - Therapy Assessment Detail (Pt is safe and Ind with modified LE dressing techniques.) Problem List - Problem List Physical Therapy Problem List: Detail (1. Requires assist for bed mobility. 2. Requires assist for transfers. 3. Difficulty walking. 4. Limited ROM R knee and impaired strength in R LE.) Occupational Therapy Problem List: Detail (No current IP OT problems identified.) Goals - Goals Physical Therapy Goals: 1. Pt will safely and independently get into/out of bed. 2. Pt will safely transfer sitting<>standing w/supervision. 3. Pt will safely ambulate household distances with front wheeled walker w/supervision. 4. Pt will safely ascend/descend steps to ensure safe entry/exit at home. 5. Pt will be independent in beginning home exercise program. Occupational Therapy Goals: No current IP OT goals identified. Prognosis - Prognosis Good Plan - Plan Physical Therapy Plan: Pt will be seen 1-2 more times tomorrow to facilitate mobility, transfers, gait, and instruct in beginning home exercise program. Occupational Therapy Plan: Pt is discharged from IP OT at this time. Thank you for this referral.
--- NOTE | 2019-01-23 10:51 | Physical Therapy Tx Note ---
Physical Therapy Tx Note - Treatment Note Tolerated: Good Total Time Spent With Patient: 30 Physical Therapy Tx Note: Detail (Patient reported that she had some pain in her R knee this morning. She was a little unsteady when first standing from the chair, but was independent with sit to stand transfer. Once patient was ready, she ambulated 26 feet in the hallway with supervision using the front-wheeled walker and WBAT on the R LE. She asked to sit before completing stair training to catch her breath and because she felt hot. Patient was able to complete stair training over 3 stairs using the railing and a single point cane with supervision. She demonstrated proper technique with stair training. She ambulated 26 feet back to her room with supervision using the front-wheeled walker and WBAT on the R LE. Patient was independent in getting into bed. In bed, her HEP was reviewed with her and patient demonstrated good technique and understanding of all exercises. It was recommended to the patient that she get a front-wheeled walker to use when returning home for a couple of weeks for better stability, instead of the 4-wheeled walker she had been planning to use, and patient agreed. The patient was left in bed with her call light and bedside table within reach. The nursing staff was notified of her position.) Physical Therapy Problem List: Detail (1. Requires assist for bed mobility. 2. Requires assist for transfers. 3. Difficulty walking. 4. Limited ROM R knee and impaired strength in R LE.) Physical Therapy Goals: 1. Pt will safely and independently get into/out of bed. GOAL MET. 2. Pt will safely transfer sitting<>standing w/supervision. GOAL MET. 3. Pt will safely ambulate household distances with front wheeled walker w/supervision. GOAL MET. 4. Pt will safely ascend/descend steps to ensure safe entry/exit at home. GOAL MET. 5. Pt will be independent in beginning home exercise program. GOAL MET Physical Therapy Plan: Patient has met all of her inpatient goals, and is being discharged from inpatient therapy at this time. She is scheduled to begin outpatient PT following discharge.
--- NOTE | 2019-01-26 09:38 | Discharge Summary ---
DATE OF ADMISSION: 01/22/2019 DATE OF DISCHARGE: 01/23/2019 ADMITTING DIAGNOSIS: OSTEOARTHRITIS OF THE RIGHT KNEE. DISCHARGE DIAGNOSIS: OSTEOARTHRITIS OF THE RIGHT KNEE. OPERATIVE PROCEDURE: Elective right total knee arthroplasty. This 73-year-old female was admitted to the hospital for total knee arthroplasty and tolerated the operative procedure well. The drain was removed the first postoperative day. No excessive bleeding was identified. The patient cleared physical therapy and was ready for discharge. She was instructed to wear her BOY hose during the day and remove them at night. She will have outpatient physical therapy and she will take aspirin 325 mg daily for four weeks. She was given a prescription for Tylenol #4, #40 to take one every four hours as necessary for pain and she will follow-up in the clinic in two weeks. Routine wound care instructions were given. Should she have any problems prior to being seen she is instructed to call my office. JOB NUMBER: [id number] MTDD
== END 2019-01-23 17:00 | disposition home or self-care (01) ==
LOC: SUR 05:21 → MEDSURG 09:33 → SUR 01-23 17:00
PROVIDERS: ATTEND Orthopaedic Surgery
DX: M17.11 Unilateral primary osteoarthritis, right knee (principal); I10 Essential (primary) hypertension; E78.00 Pure hypercholesterolemia, unspecified; E66.9 Obesity, unspecified; I25.10 Atherosclerotic heart disease of native coronary artery without angina pectoris; Z95.5 Presence of coronary angioplasty implant and graft
CPT/HCPCS: 27447; 01402; 64447; 94760; 90686; J1170; J1652; J2795; J3370; 76942; J7120